=== PATIENT | male | born 1990 | race Caucasian/White ===

== ENCOUNTER 2016-09-03 19:05 | Emergency (ER) | payer OTHER ==
[~2016-09-03] VITALS: Ht 170.2 cm; Wt 75.7 kg
[2016-09-03 19:18] VITALS: BP 140/90
--- NOTE | 2016-09-03 21:33 | NUR ---
PT TAKEN TO OF
--- NOTE | 2016-09-03 21:34 | NUR ---
Dr. Hernadez evaluating patient
--- NOTE | 2016-09-03 21:38 | NUR ---
PT MOVED TO BED 5
[2016-09-03] MEDS ORDERED: TETRACAINE 0.5% OPTH SOL 2 ML BTL ONE (21:45)
[2016-09-03] MEDS ORDERED: FLUORESCEIN OPTH STRIP 1 MG ONE (21:45)
--- NOTE | 2016-09-03 21:48 | NUR ---
PT IS 26Y/M C/O FORIEGN BODY ON HIS RT EYE WHILE AT WORK AT 1600HOURS.
--- NOTE | 2016-09-03 23:10 | NUR ---
Patient discharged with v/s stable. Written and verbal after care instructions given and explained. Patient alert, oriented and verbalized understanding of instructions. Ambulatory with steady gait. All questions addressed prior to discharge. ID band removed. Patient advised to follow up with PMD. Rx of TOBRADEX 0.3%-0.1% OPTHALMIC OINTMENT, TYLENOL WITH CODIENE # 3 given. Patient educated on indication of medication including possible reaction and side effects. Opportunity to ask questions provided and answered.
[2016-09-03 23:12] VITALS: BP 130/74
== END 2016-09-03 23:10 | disposition home or self-care (01) ==
LOC: MED 19:05
DX: H20.9 Unspecified iridocyclitis (principal); R03.0 Elevated blood-pressure reading, without diagnosis of hypertension